=== PATIENT | female | born 1975 | race Two or more races ===

== ENCOUNTER 2023-07-11 15:48 | Emergency (ER) | payer OTHER ==
[~2023-07-11] VITALS: Ht 152.4 cm; Wt 74.8 kg
[2023-07-11] MEDS ORDERED: CRESTOR10 MG (16:05)
[2023-07-11 17:45] LABS: HEMATOCRIT 41.6 % (36.0-45.00); HEMOGLOBIN 13.6 g/dL (12.0-15.00); MEAN CORPUSCULAR HEMOGLOBIN 28.8 pg (27.00-32.0); MEAN CORPUSCULAR HGB CONC 32.8 g/dl (32.0-36.0); PLATELET COUNT 230 K/uL (150-450); RED BLOOD COUNT 4.73 M/uL (4.00-6.00); RED CELL DISTRIBUTION WIDTH 13.8 % (11.5-14.5)
== END 2023-07-11 19:26 | disposition home or self-care (01) ==
LOC: ER 15:49
PROVIDERS: General Practice
DX: J45.909 Unspecified asthma, uncomplicated (principal)